=== PATIENT | male | born 1950 | race Hispanic/Latino ===

== ENCOUNTER 2018-09-30 20:06 | Emergency (ER) | payer OTHER, SELFPAY ==
[2018-09-30] MEDS ORDERED: KETOROLAC 30 MG/ML INJ ONE (21:13)
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
== END 2018-09-30 21:23 | disposition home or self-care (01) ==
LOC: ER 20:06
DX: S13.4XXA Sprain of ligaments of cervical spine, initial encounter (principal); V49.9XXA Car occupant (driver) (passenger) injured in unspecified traffic accident, initial encounter; Z79.82 Long term (current) use of aspirin; Z95.0 Presence of cardiac pacemaker; I10 Essential (primary) hypertension; E78.5 Hyperlipidemia, unspecified
CPT/HCPCS: 96372; 99283